=== PATIENT | male | born 1960 | race Caucasian/White ===

== ENCOUNTER 2022-09-10 14:00 | Outpatient (CLI) | payer OTHER, SELFPAY ==
--- NOTE | 2022-09-10 08:00 | CRLHL7_ITS ---
For Patients: As a result of the Cures Act, medical imaging exams and procedure reports are released immediately into your electronic medical record. You may view this report before your referring provider. If you have questions, please contact your health care provider. INDICATION: Arthritis TECHNIQUE: 3-view lumbar spine. COMPARISON: none FINDINGS: Multilevel discogenic spurring throughout the lumbar spine. Mild narrowing at the L5-S1 disc space. Vascular calcifications. Facet degeneration L5-S1. No fracture. IMPRESSION: Multilevel discogenic spurring throughout the lumbar spine. L5-S1 facet degeneration. Dictated by Avtar Jensen MD @ 09/13/2022 9:36:38 AM (Electronically Signed)
== END 2022-09-10 14:01 | disposition home or self-care (01) ==
LOC: RAD 14:06
PROVIDERS: Visit Provider Chiropractor
DX: M13.80 Other specified arthritis, unspecified site (principal); M51.37 Other intervertebral disc degeneration, lumbosacral region
CPT/HCPCS: 72100